=== PATIENT | female | born 1990 | race Caucasian/White ===

== ENCOUNTER 2021-04-06 14:53 | Inpatient (IN) | payer BC ==
[2021-04-06 15:53] VITALS: BMI 22.0
[2021-04-06] MEDS ORDERED: ONDANSETRON *ODT* 4 MG TABLET SL PRN (17:41)
[2021-04-06] MEDS ORDERED: MAGNESIUM HYDROX 2400MG/30ML ORAL SUSPENSION 30 ML CUP PO PRN (17:41)
[2021-04-06] MEDS ORDERED: MENTHOL/PHENOL 1 EACH UD MM PRN (17:41)
[2021-04-06] MEDS ORDERED: MAGNESIUM CITRATE 300 ML BOTTLE PO PRN (17:41)
[2021-04-06] MEDS ORDERED: chlordiazePOXIDE HCL 25 MG CAPSULE PO PRN (17:41)
[2021-04-06] MEDS ORDERED: BISMUTH SUBSALICYLATE 524 MG/30 ML PO PRN (17:41)
[2021-04-06] MEDS ORDERED: ACETAMINOPHEN 325 MG TABLET (FP) PO PRN ×2 (17:41)
[2021-04-06] MEDS ORDERED: MAG HYDROX/AL HYDROX/SIMETH 30 ML UNIT-DOSE CUP PO PRN (17:41)
[2021-04-06] MEDS ORDERED: hydrOXYzine PAMOATE 25 MG CAPSULE (FP) PO ONE (18:17)
[2021-04-06] MEDS ORDERED: chlordiazePOXIDE HCL 25 MG CAPSULE ONE (18:17)
[2021-04-06] MEDS: hydrOXYzine PAMOATE 25 MG CAPSULE (FP) PO SCH ×2 (18:18→22:06)
[2021-04-06] MEDS ORDERED: diazePAM 5 MG TABLET PO PRN (21:36)
[2021-04-06] MEDS: METHOCARBAMOL 500 MG TABLET PO PRN (22:05)
[2021-04-06] MEDS: THIAMINE HCL 100 MG TABLET (FP) PO SCH (22:05)
[2021-04-06] MEDS: MELATONIN 5 MG TABLETS PO SCH (22:05)
[2021-04-06] MEDS: diazePAM 5 MG TABLET PO SCH (22:06)
[2021-04-06] MEDS ORDERED: chlordiazePOXIDE HCL 25 MG CAPSULE PO SCH (23:00)
[2021-04-07] MEDS: diazePAM 5 MG TABLET PO SCH ×4 (06:08→22:07)
[2021-04-07] MEDS: hydrOXYzine PAMOATE 25 MG CAPSULE (FP) PO SCH ×5 (06:08→22:08)
[2021-04-07 10:01] LABS: HEMATOCRIT 29.8 % (32.4-45.2); HEMOGLOBIN 9.6 GM/dL (10.7-15.3); MCH 24.2 pg (25.7-33.7); MCHC 32.2 g/dl (32.0-36.0); MEAN PLT VOLUME 7.2 fl (7.5-11.1); PLATELET COUNT 234 K/MM3 (134-434); RBC 3.97 M/mm3 (3.60-5.2); WHITE BLOOD COUNT 4.6 K/mm3 (4.0-10.0)
[2021-04-07 10:04] LABS: BLOOD UREA NITROGEN 8.6 mg/dL (7-18); CALCIUM 8.6 mg/dL (8.5-10.1)
[2021-04-07 10:05] LABS: ALBUMIN 3.1 g/dl (3.4-5.0)
[2021-04-07 10:08] LABS: CREATININE 0.6 mg/dL (0.55-1.3)
[2021-04-07 10:09] LABS: BILIRUBIN,TOTAL 0.8 mg/dL (0.2-1); TOT PROT 6.8 g/dl (6.4-8.2)
[2021-04-07] MEDS: IBUPROFEN 400 MG TABLET (FP) PO PRN (10:22)
[2021-04-07] MEDS: METHOCARBAMOL 500 MG TABLET PO PRN ×3 (10:24→23:37)
[2021-04-07] MEDS: PRENATAL VITAMINS W/ FOLIC ACID TABLET (FP) PO SCH (10:24)
[2021-04-07] MEDS: PARoxetine HCL 20 MG TABLET PO SCH (10:55)
[2021-04-07] MEDS: MELATONIN 5 MG TABLETS PO SCH (22:07)
[2021-04-07] MEDS: THIAMINE HCL 100 MG TABLET (FP) PO SCH (22:07)
[2021-04-08] MEDS ORDERED: chlordiazePOXIDE HCL 25 MG CAPSULE PO SCH (05:00)
[2021-04-08] MEDS: diazePAM 5 MG TABLET PO SCH ×3 (05:41→22:18)
[2021-04-08] MEDS: hydrOXYzine PAMOATE 25 MG CAPSULE (FP) PO SCH ×5 (05:42→22:17)
[2021-04-08] MEDS: METHOCARBAMOL 500 MG TABLET PO PRN ×2 (10:21→17:27)
[2021-04-08] MEDS: PRENATAL VITAMINS W/ FOLIC ACID TABLET (FP) PO SCH (10:22)
[2021-04-08] MEDS: PARoxetine HCL 20 MG TABLET PO SCH (10:22)
[2021-04-08] MEDS: NICOTINE POLACRILEX 2 MG GUM BUC PRN ×2 (10:24→17:27)
[2021-04-08] MEDS: MELATONIN 5 MG TABLETS PO SCH (22:17)
[2021-04-08] MEDS: THIAMINE HCL 100 MG TABLET (FP) PO SCH (22:17)
[2021-04-09] MEDS ORDERED: chlordiazePOXIDE HCL 10 MG CAPSULE PO PRN
[2021-04-09] MEDS ORDERED: chlordiazePOXIDE HCL 10 MG CAPSULE PO SCH (05:00)
[2021-04-09] MEDS: diazePAM 5 MG TABLET PO SCH ×2 (05:45→18:19)
[2021-04-09] MEDS: METHOCARBAMOL 500 MG TABLET PO PRN (05:46)
[2021-04-09] MEDS: hydrOXYzine PAMOATE 25 MG CAPSULE (FP) PO SCH ×5 (05:47→23:40)
[2021-04-09] MEDS: PRENATAL VITAMINS W/ FOLIC ACID TABLET (FP) PO SCH (10:44)
[2021-04-09] MEDS: PARoxetine HCL 20 MG TABLET PO SCH (10:46)
[2021-04-09] MEDS: FERROUS SO4 325 MG TABLET (FP) PO SCH ×2 (12:40→18:19)
[2021-04-09] MEDS: CYCLOBENZAPRINE HCL 10 MG TABLET (FP) PO PRN ×2 (12:40→23:40)
[2021-04-09] MEDS: NICOTINE POLACRILEX 2 MG GUM BUC PRN ×2 (18:22→20:53)
[2021-04-09] MEDS: IBUPROFEN 400 MG TABLET (FP) PO PRN (20:48)
[2021-04-09] MEDS: MELATONIN 5 MG TABLETS PO SCH (23:39)
[2021-04-09] MEDS: THIAMINE HCL 100 MG TABLET (FP) PO SCH (23:40)
[2021-04-10] MEDS ORDERED: chlordiazePOXIDE HCL 10 MG CAPSULE PO SCH (05:00)
[2021-04-10] MEDS ORDERED: diazePAM 5 MG TABLET PO ONE (06:00)
[2021-04-10] MEDS: hydrOXYzine PAMOATE 25 MG CAPSULE (FP) PO SCH ×4 (06:11→20:34)
[2021-04-10] MEDS: CYCLOBENZAPRINE HCL 10 MG TABLET (FP) PO PRN ×3 (06:16→13:26)
[2021-04-10] MEDS: NICOTINE POLACRILEX 2 MG GUM BUC PRN ×3 (06:18→15:14)
[2021-04-10] MEDS: FERROUS SO4 325 MG TABLET (FP) PO SCH ×3 (07:21→20:34)
[2021-04-10] MEDS: PRENATAL VITAMINS W/ FOLIC ACID TABLET (FP) PO SCH (10:29)
[2021-04-10] MEDS: PARoxetine HCL 20 MG TABLET PO SCH (10:30)
[2021-04-10 18:09] VITALS: BP 121/79; PULSE 102; TEMP 98.4
[2021-04-11] MEDS ORDERED: chlordiazePOXIDE HCL 10 MG CAPSULE PO ONE (05:00)
[2021-04-11 07:55] LABS: SARS-CoV-2 NAA NOT DETECTED
== END 2021-04-10 18:41 | disposition home or self-care (01) | DRG 775 ==
LOC: YASAS 14:53 → Y6N 17:44
PROVIDERS: ADMIT Allergy & Immunology; ATTEND Allergy & Immunology
PROC: HZ2ZZZZ Detoxification Services for Substance Abuse Treatment (ICD-10-PCS; principal; 2021-04-06)
DX: F10.230 Alcohol dependence with withdrawal, uncomplicated (principal); F10.280 Alcohol dependence with alcohol-induced anxiety disorder; F10.282 Alcohol dependence with alcohol-induced sleep disorder; F90.9 Attention-deficit hyperactivity disorder, unspecified type; F41.9 Anxiety disorder, unspecified; D50.9 Iron deficiency anemia, unspecified; Z91.410 Personal history of adult physical and sexual abuse; W19.XXXA Unspecified fall, initial encounter; Y92.239 Unspecified place in hospital as the place of occurrence of the external cause; Y93.89 Activity, other specified
CPT/HCPCS: 36415; 71046-TC-FY; 80053; 85027; 86780; C9803; U0003; U0005